=== PATIENT | female | born 1995 | race Caucasian/White ===

== ENCOUNTER 2018-12-30 15:29 | Inpatient (IN) | payer OTHER, BC ==
--- NOTE | 2018-12-31 01:40 | PR ---
[facility] [address] [facility] [place], [place] [address] Signed Progress Notes IP Datetime Report Generated by SARBJIT: 12/31/2018 01:40 PROGRESS NOTES: [id number] Impression: Normal progression of labor Procedures: Sterile Vag Exam Plan: Anesthesia consult Informed Consent Obtain: Vaginal Delivery; Induction of Labor; Risks, Benefits and Alternatives Discussed VITAL SIGNS: [id number] Vital Signs: Reviewed; Within Normal Limits EXAM: [id number] Dilatation: 8.0 Effacement: 90 Station: -2 Uterine Contractions: q 1 to 3 min MEMBRANES: [id number] Membrane Status: Intact Comments: Has been progressing well but is now having more pain. Will redose epidural and proceed with AROM at that time. Fetus A: [id number] FHR Baseline: 145 Variability: Moderate 6-25bpm Accelerations: 15X15 Decelerations: Variable FHR Category: Category II Presentation: Vertex Comments on Fetus A: accel with exam Fetus B: [id number] Signing Physician: Oralia Sanchez MD Copies: ~ *Electronically Signed* 12/31/18 0140 ORALIA SANCHEZ MD PATIENT NAME: KEILA MOREAU PROGRESS NOTE DATE OF : [birth year] PHYSICIAN: ORALIA SANCHEZ MD RPT #: [id number] REPORT IS CONFIDENTIAL AND NOT TO BE RELEASED WITHOUT AUTHORIZATION
--- NOTE | 2018-12-31 02:26 | PR ---
[facility] [address] [place] [facility] [place] [address] Signed Progress Notes IP Datetime Report Generated by SARBJIT: 12/31/2018 02:26 PROGRESS NOTES: [id number] Impression: Normal progression of labor Procedures: Artificial ROM; Sterile Vag Exam Plan: Continue present management Informed Consent Obtain: Vaginal Delivery; Induction of Labor; Risks, Benefits and Alternatives Discussed VITAL SIGNS: [id number] Vital Signs: Reviewed; Within Normal Limits EXAM: [id number] Dilatation: 9.0 Effacement: 90 Station: -1 Uterine Contractions: q 1 to 3 min MEMBRANES: [id number] Membrane Status: Intact ROM Note: AROM with small amount of mec stained fluid Comments: Progressing. A little more comfortable after the redose on epidural but still with c/o groin pain. Will continue close observation. Fetus A: [id number] FHR Baseline: 145 Variability: Moderate 6-25bpm Accelerations: 15X15 Decelerations: Variable FHR Category: Category II Presentation: Vertex Comments on Fetus A: difficult to determine baseline at this time Fetus B: [id number] Signing Physician: Oralia Sanchez MD Copies: ~ *Electronically Signed* 12/31/18225 ORALIA SANCHEZ MD PATIENT NAME: KEILA MOREAU PROGRESS NOTE DATE OF : [birth year] PHYSICIAN: ORALIA SANCHEZ MD RPT #: [id number] REPORT IS CONFIDENTIAL AND NOT TO BE RELEASED WITHOUT AUTHORIZATION
--- NOTE | 2019-01-01 08:47 | PR ---
[facility] [place] [facility] [address] [facility] [place], [place] [address] Signed PP Progress Notes Datetime Report Generated by CPN: 01/01/2019 08:46 SUBJECTIVE: [id number] Pain: Within normal limits Vital Signs: [id number] Vital Signs: Reviewed; Within Normal Limits EXAM: [id number] Cardiovascular: Not Done Respiratory: Not Done Abdomen/Uterus: Abnormal Lochia: Normal Vulva/Perineum: Not Done Breasts: Not Done CVA Tenderness: Not Done Extremities: Normal Incision: Not Applicable Progress: Normal Exam Comments: Fundus firm, NT @ U-1. H/H 10.6/31.9, WBC 14.5, plat 216k IMPRESSION/PLAN/PROCEDURES: [id number] Impression: Normal progression Plan: Discharge Procedures: Rhogam Progress Notes: Doing well. She is ready for D/C. Signing Physician: Oralia Sanchez MD Copies: ~ *Electronically Signed* 01/01/19 0846 ORALIA SANCHEZ MD PATIENT NAME: KEILA MOREAU PROGRESS NOTE DATE OF : [birth year] PHYSICIAN: ORALIA SANCHEZ MD RPT #: [id number] REPORT IS CONFIDENTIAL AND NOT TO BE RELEASED WITHOUT AUTHORIZATION
== END 2019-01-01 14:15 | disposition home or self-care (01) | DRG 807 ==
LOC: FBC 15:29
PROVIDERS: ADMIT Obstetrics & Gynecology
PROC: 3E0P7VZ Introduction of Hormone into Female Reproductive, Via Natural or Artificial Opening (ICD-10-PCS; 2018-12-30)
PROC: 00HU03Z Insertion of Infusion Device into Spinal Canal, Open Approach (ICD-10-PCS; 2018-12-30)
PROC: 3E0R3BZ Introduction of Anesthetic Agent into Spinal Canal, Percutaneous Approach (ICD-10-PCS; 2018-12-30)
PROC: 10E0XZZ Delivery of Products of Conception, External Approach (ICD-10-PCS; principal; 2018-12-31)
PROC: 0KQM0ZZ Repair Perineum Muscle, Open Approach (ICD-10-PCS; 2018-12-31)
PROC: 10907ZC Drainage of Amniotic Fluid, Therapeutic from Products of Conception, Via Natural or Artificial Opening (ICD-10-PCS; 2018-12-31)
PROC: 3E0234Z Introduction of Serum, Toxoid and Vaccine into Muscle, Percutaneous Approach (ICD-10-PCS; 2019-01-01)
DX: O14.94 Unspecified pre-eclampsia, complicating childbirth (principal); Z37.0 Single live birth; Z3A.39 39 weeks gestation of pregnancy; O76 Abnormality in fetal heart rate and rhythm complicating labor and delivery; O26.893 Other specified pregnancy related conditions, third trimester; Z67.41 Type O blood, Rh negative; O26.03 Excessive weight gain in pregnancy, third trimester; O99.214 Obesity complicating childbirth; E66.9 Obesity, unspecified; O70.1 Second degree perineal laceration during delivery; O77.0 Labor and delivery complicated by meconium in amniotic fluid; O69.1XX0 Labor and delivery complicated by cord around neck, with compression, not applicable or unspecified
CPT/HCPCS: 01960; 36415; 82565; 82803; 83030; 84450; 84520; 84550; 85025; 85027; 86850; 86900; 86901; J1644; J2590; J2790; J2795; J3105; J7120

== ENCOUNTER 2021-11-01 17:14 | Inpatient (IN) | payer BC ==
[~2021-11-01] VITALS: Ht 162.6 cm; Wt 117.5 kg
--- NOTE | 2021-11-01 18:00 | NUR ---
both nares swabbed for covid-19 without complication. sample taken to lab.
--- NOTE | 2021-11-01 18:51 | PR ---
[facility] [address] [facility] [place], [place] [address] Signed Progress Notes IP Datetime Report Generated by CPN: 11/01/2021 18:51 PROGRESS NOTES: [id number] Impression: Reassuring Heart Rate Procedures: Sterile Vag Exam Plan: Continue Present Management VITAL SIGNS: [id number] Vital Signs: Reviewed; Within Normal Limits EXAM: [id number] Dilatation: 5.0 Effacement: 80 Station: -2 Contractions: q 2 min MEMBRANES: [id number] Comments: Tolerating her contractions but very uncomfortable. Awaiting epidural. FETUS A: [id number] FHR Baseline: 140 Variability: Moderate 6-25bpm Accelerations: 15X15 Decelerations: None FHR Category: Category I Presentation: Vertex Comments on Fetus A: no evidence of metabolic acidosis FETUS B: [id number] Signing Physician: Oralia Sanchez MD Copies: ~ *Electronically Signed* 11/01/211850 ORALIA SANCHEZ MD PATIENT NAME: PRIETOKEILA PREM PROGRESS NOTE DATE OF : 89 PHYSICIAN: ORALIA SANCHEZ MD RPT #: [id number] REPORT IS CONFIDENTIAL AND NOT TO BE RELEASED WITHOUT AUTHORIZATION
--- NOTE | 2021-11-02 09:38 | PR ---
[facility] [address] [facility] [place], [place] [address] Signed PP Progress Notes Datetime Report Generated by CPBalbir: 11/02/2021 09:37 SUBJECTIVE: [id number] Pain: Within Normal Limits Vital Signs: [id number] Vital Signs: Reviewed; Within Normal Limits Cardiovascular: Not Done Respiratory: Not Done Abdomen/Uterus: Abnormal Lochia: Normal Vulva/Perineum: Not Done Breasts: Not Done CVA Tenderness: Not Done Extremities: Normal Incision: Not Applicable Progress: Normal Exam Comments: Fundus firm, nontender @ U-1. H/H 11.5/34.7, WBC 15.6, plat 217k IMPRESSION/PLAN/PROCEDURES: [id number] Impression: Normal Progression Plan: Discharge Procedures: Rhogam Progress Notes: Doing well. She desires discharge today. Signing Physician: Oralia Sanchez MD Copies: ~ *Electronically Signed* 11/02/21 0937 ORALIA SANCHEZ MD PATIENT NAME: KEILA MOREAU PROGRESS NOTE DATE OF : [birth year] PHYSICIAN: ORALIA SANCHEZ MD RPT #: [id number] REPORT IS CONFIDENTIAL AND NOT TO BE RELEASED WITHOUT AUTHORIZATION
== END 2021-11-02 19:56 | disposition home or self-care (01) | DRG 807 ==
LOC: FBCO 17:14 → FBC 17:30 → MS 20:54 → FBC 20:55
PROVIDERS: ADMIT Obstetrics & Gynecology; ATTEND Obstetrics & Gynecology
PROC: 10E0XZZ Delivery of Products of Conception, External Approach (ICD-10-PCS; principal; 2021-11-01)
PROC: 0KQM0ZZ Repair Perineum Muscle, Open Approach (ICD-10-PCS; 2021-11-01)
PROC: 10907ZC Drainage of Amniotic Fluid, Therapeutic from Products of Conception, Via Natural or Artificial Opening (ICD-10-PCS; 2021-11-01)
PROC: 3E0334Z Introduction of Serum, Toxoid and Vaccine into Peripheral Vein, Percutaneous Approach (ICD-10-PCS; 2021-11-01)
DX: O62.3 Precipitate labor (principal); Z37.0 Single live birth; O69.81X0 Labor and delivery complicated by cord around neck, without compression, not applicable or unspecified; O99.214 Obesity complicating childbirth; Z20.822 Contact with and (suspected) exposure to COVID-19; O70.1 Second degree perineal laceration during delivery; Z3A.40 40 weeks gestation of pregnancy; Z86.16 Personal history of COVID-19; O26.893 Other specified pregnancy related conditions, third trimester; Z67.41 Type O blood, Rh negative
CPT/HCPCS: 36415; 83030; 85027; 86850; 86900; 86901; 87502; A9270; C9803; J2001; J2405; J2590; J2790; J2795; J7121; U0003

== ENCOUNTER 2022-03-07 01:34 | Emergency (ER) | payer BC ==
[~2022-03-07] VITALS: Ht 162.6 cm; Wt 101.0 kg
[2022-03-07] MEDS ORDERED: CEFDINIR300 MG PO (04:13)
[2022-03-07] MEDS ORDERED: ONDANSETRON ODT8 MG PO (04:13)
[2022-03-07] MEDS ORDERED: HYDROCODON-ACE1 EA10 PO (04:13)
== END 2022-03-07 04:45 | disposition home or self-care (01) ==
LOC: ED 01:34
DX: N12 Tubulo-interstitial nephritis, not specified as acute or chronic (principal); Z20.822 Contact with and (suspected) exposure to COVID-19
CPT/HCPCS: 36415; 74177; 80053; 81001; 83690; 84703; 85025; 87088; 87502; 96361; 96375; 99284-25; A9270; J0696; J2270; J2405; J7030; Q9967; U0003